=== PATIENT | female | born 1995 | race Caucasian/White ===

== ENCOUNTER → 2016-08-25 | Outpatient (CLI) | payer OTHER ==
[~2016-08-25] MED LIST: ASPI81CH PO; COLA100C3 PO; NAPR500T2 PO; OXYC1TAB23 PO; ZOFR4TAB3 PO; no medications
--- NOTE | 2016-08-25 16:16 | REP ---
CT of the right hip without IV contrast: Comparison is a plain film study performed of 4 [facility], [place] 08/25/2016. Axial images are acquired helical scanning and a reformatted sagittal coronal projections. On the sagittal projections. There appears to be in a unicortical fracture in the inferior cortex of the femoral neck. . The fracture does not appear to extend into the remainder of the femoral . This may be a stress fracture. Neoplasm is also a possibility. Consideration might be given to MRI for further evaluation. Mineralization is otherwise normal. The joint space is unremarkable. There is no femoral head deformity. Impression: Unicortical l fracture along the inferior cortex of the femoral neck, possibly a stress fracture, versus neoplasm. Consider MRI for further evaluation. Signed by Manolo Bravo MD 08/25/2016 04:08 P
== END ==
LOC: M RAD 14:56
PROVIDERS: ATTEND Orthopaedic Surgery
DX: M25.551 Pain in right hip (principal)

== ENCOUNTER 2016-08-26 10:52 | Day surgery (SDC) | payer OTHER ==
[2016-08-26] MEDS ORDERED: ceFAZolin 2 GM/D5W 50 ML IV BAG (J0690) As Ordered ONE (11:06)
[2016-08-26] MEDS ORDERED: no medications (11:36)
[2016-08-26] MEDS ORDERED: LR 1,000 ML IV SCH ×2 (12:15→22:00)
[2016-08-26 12:41] LABS: CONTROL LINE UCG INT CTR LINE PRESENT
[2016-08-26] MEDS ORDERED: ceFAZolin 1GM INJ (J0690) As Ordered ONE (16:49)
[2016-08-26] MEDS ORDERED: MIDAZOLAM INJ 2 MG/2 ML VIAL (J2250) As Ordered ONE (20:17)
[2016-08-26] MEDS ORDERED: fentaNYL 100 MCG/2 ML INJECTION (J3010) As Ordered ONE ×2 (20:17→21:37)
[2016-08-26] MEDS ORDERED: ONDANSETRON 4MG/2ML VIAL (J2405) As Ordered ONE ×2 (20:25→21:37)
[2016-08-26] MEDS ORDERED: dexameTHASONE 4 MG/ML 1ML VIAL (J1100) As Ordered ONE (20:25)
[2016-08-26] MEDS ORDERED: ePHEDrine SULFATE 25 MG/5 ML(5MG/ML) SYRINGE As Ordered ONE (20:27)
[2016-08-26] MEDS ORDERED: PHENYLephrine HCL 500 MCG/5 ML (100MCG/ML) SYRINGE (J2370) As Ordered ONE (20:27)
[2016-08-26] MEDS ORDERED: LIDOCAINE W/EPINEPHRINE 1% 20ML VIAL As Ordered ONE (20:31)
[2016-08-26] MEDS ORDERED: BUPIVACAINE/EPIN 0.5% 30 ML VIAL As Ordered ONE (20:31)
[2016-08-26] MEDS ORDERED: PROPOFOL 500 MG/50 ML VIAL As Ordered ONE (20:40)
[2016-08-26] MEDS ORDERED: KETOROLAC 60 MG/2 ML VIAL (J1885) As Ordered ONE (21:12)
[2016-08-26] MEDS ORDERED: HYDROmorphone HCL 2 MG/ML 1ML VIAL (J1170) As Ordered ONE (21:12)
[2016-08-26] MEDS ORDERED: PERCOCET 5MG/325MG TAB As Ordered ONE (21:37)
[2016-08-26] MEDS: fentaNYL 100 MCG/2 ML INJECTION (J3010) IV PRN ×4 (21:40→22:10)
[2016-08-26] MEDS ORDERED: PERCOCET 5MG/325MG TAB PO PRN (22:00)
[2016-08-26] MEDS ORDERED: ONDANSETRON 4MG/2ML VIAL (J2405) IV PRN ×2 (22:00)
[2016-08-26] MEDS ORDERED: ONDANSETRON 4 MG TAB (S0181) PO PRN (22:00)
[2016-08-26] MEDS: PERCOCET 5MG/325MG TAB PO PRN (22:06)
--- NOTE | 2016-08-26 22:08 | REP ---
Clinical: Postoperative assessment. Technique: Portable AP and cross-table lateral views. Findings: The patient is status post pinning of the femoral neck for underlying fracture. Alignment is maintained. Impression: Status post pinning for femoral neck fracture. Signed by Asim Kelly MD 08/26/2016 09:59 P
[2016-08-26 23:00] VITALS: BP 117/55
[2016-08-26 23:30] VITALS: BP 122/76
[2016-08-27 00:30] VITALS: BP 126/73
[2016-08-27 01:30] VITALS: BP 126/65
[2016-08-27] MEDS: PERCOCET 5MG/325MG TAB PO PRN ×3 (02:12→11:16)
[2016-08-27 02:30] VITALS: BP 121/57
--- NOTE | 2016-08-27 07:39 | REP ---
Clinical: Open reduction and fixation. Technique: Intraoperative fluoroscopic imaging. Findings: Multiple intraoperative fluoroscopic images demonstrate the patient to be status post right femoral neck pinning with three orthopedic screws in satisfactory position and normal alignment through the proximal femur. Total fluoroscopic time 2 minutes 7 seconds. Impression: Status post right femoral neck pinning Signed by Asim Kelly MD 08/27/2016 07:31 A
[2016-08-27 08:00] VITALS: BP 128/71
[2016-08-27] MEDS ORDERED: NAPR500T3 PO (08:53)
[2016-08-27] MEDS ORDERED: ASPI81CH PO (08:53)
[2016-08-27] MEDS ORDERED: OXYC1TAB23 PO (08:53)
[2016-08-27] MEDS ORDERED: ZOFR4TAB3 PO (08:53)
[2016-08-27] MEDS ORDERED: COLA100C5 PO (08:53)
[2016-08-27] MEDS ORDERED: NAPROXEN 250 MG TAB PO SCH (09:00)
--- NOTE | 2016-08-27 11:32 | RO ---
DATE OF PROCEDURE: 08/26/2016 PREPROCEDURE DIAGNOSIS: Right femoral neck stress fracture. POSTPROCEDURE DIAGNOSIS: Right femoral neck stress fracture. PROCEDURE PERFORMED: Right hip percutaneous screw fixation. SURGEON: Edwar Ortega MD PROCESS SAFETY ENGINEERING TECHNOLOGIST: none ANESTHESIA: LMA and local. ANTIBIOTIC: 2 grams of Ancef given within 1 hour of incision. IMPLANTS USED: Synthes 6.5 mm short threaded cannulated screws with washers, one 85 mm in length and two 80 mm in length. COMPLICATIONS: None. ESTIMATED BLOOD LOSS: 50 mL. DEEP VEIN THROMBOSIS (DVT) PROPHYLAXIS: Sequential compression device (SCD) on the lower extremities. MATERIAL SENT TO LAB: None. COMPLICATIONS: None. 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 She had radiographs that demonstrated evidence of a complete nondisplaced femoral neck stress fracture with remodeling changes on the inferior aspect of the femoral neck. I obtained a CT to ensure that there was no displacement and confirmed that there was involvement of the tension side of the femoral neck, which there appeared to be. I discussed with the patient, the risks, benefits, indications and alternatives of operative versus nonoperative management of her femoral neck stress fracture, given that she had what appeared to be tension side involvement. I recommended percutaneous screw fixation. The patient expressed understanding and provided informed consent for right hip percutaneous screw fixation. INTRAOPERATIVE FINDINGS: Screws were placed in adequate position. The hip was brought through a range of motion, confirmed that there was no intraarticular penetration of screws. DESCRIPTION OF PROCEDURE: The patient was positively identified in the preoperative holding area where the surgical site was marked. She was brought to the operating room where she was placed under LMA anesthesia. She was positioned supine on the fracture table with the down leg secured to the table. All bony prominences were appropriately padded. I obtained fluoroscopic images prior to prepping and draping to ensure adequate C-Arm fluoroscopy. The patient was then prepped and draped in the usual sterile fashion. A final time out was performed. I made a 2 cm laterally based incision on the thigh approximately 10cm distal to the tip of the greater trochanter. I dissected through skin and subcutaneous tissue. I then introduced the first 2.8 mm threaded guide pin for the first screw in the posteroinferior position. I then used C-Arm fluoroscopic guidance and placed the posteroinferior pin. Then, again using fluoroscopic guidance, placed the posterosuperior pin and anterosuperior pin in a slightly divergent fashion. This was followed by measurement of each screw. I then used the 5 mm cannulated drill bit to drill the outer cortex, followed by sequential placement of all three screws, starting with the 85 mm screw with washer posterior-inferiorly, followed by the two superior screws. After all three screws were placed, they were sequentially tightened. I then took the hip through range of motion and took sequential C- Arm shots in 10 degree increments to confirm that there was no intraarticular penetration of the screw and no penetration through the femoral neck. After this was confirmed, final fluoroscopic images were obtained. The wound was thoroughly irrigated with normal saline and closed in layers with #2-0 Vicryl for the subcutaneous layer and running #3-0 Monocryl for the skin. a 10cc mixture of 1% lidocaine with epinephrine and 0.5% Marcaine with epinephrine was injected into the wound for local pain control. Steri-Strips and sterile dressings were applied, ending the procedure. I was present and scrubbed in for all portions of the case. Postoperative plan: The patient will remain in the hospital overnight for observation and pain control. She will be non weight bearing on crutches. We will discharge home tomorrow morning after crutch training is complete. She will followup in the clinic in 10 to 14 days for a wound check. She will be non- weight bearing for at least 6 weeks post operatively. GENARO
== END 2016-08-27 12:20 | disposition home or self-care (01) ==
LOC: M SDC 10:52 → EDSTATUS 14:42 → M MS5PR 23:00 → M SDC 08-27 12:20
PROVIDERS: ATTEND Orthopaedic Surgery
DX: M84.351A Stress fracture, right femur, initial encounter for fracture (principal)
CPT/HCPCS: 27235; 73501; 73502; 84703; 96374; 96375; 97116; C1776; J0690; J1100; J1170; J1885; J2250; J2370; J2405; J3010

== ENCOUNTER 2016-11-28 13:25 | Emergency (ER) | payer OTHER ==
[~2016-11-28] VITALS: Ht 165.1 cm; Wt 81.8 kg
[~2016-11-28 13:25] MED LIST changes: -COLA100C3 PO; +COLA100C5 PO; -NAPR500T2 PO; +NAPR500T3 PO
[2016-11-28] MEDS ORDERED: IBUP200T45 (13:46)
[2016-11-28] MEDS ORDERED: CYCL10TA (13:46)
[2016-11-28 14:36] LABS: BASO % 0.2 % (0.0-1.0); EOS # 0.1 10^3/uL (0.0-0.50); EOS % 1.5 % (0.0-3.0); IMMATURE GRANULOCYTE % 0.2 % (0-0); LYMPH % 20.9 % (24.0-44.0); MEAN CORPUSCULAR HEMOGLOBIN 26.5 pg (27.0-33.0); MEAN CORPUSCULAR HGB CONC 31.4 g/dl (32.0-36.5); MEAN CORPUSCULAR VOLUME 84.4 fl (80.0-96.0); MONO # 0.2 10^3/uL (0.0-0.8); MONO % 4.9 % (0.0-5.0); NEUTROPHILS # 3.4 10^3/uL (1.8-7.7); NEUTROPHILS % 72.3 % (36.0-66.0); PLATELET COUNT, AUTOMATED 382 10^3/uL (150-450); WHITE BLOOD COUNT 4.7 10^3/uL (4.0-10.0)
[2016-11-28 14:39] LABS: ADD MORPHOLOGY? NO
[2016-11-28 15:04] LABS: ALBUMIN 3.7 GM/DL (3.2-5.2); ALBUMIN/GLOBULIN RATIO 0.82 (1.00-1.93); ALKALINE PHOSPHATASE 86 U/L (45-117); ALT/SGPT 22 U/L (12-78); ANION GAP 7 MEQ/L (8-16); AST/SGOT 12 U/L (15-37); BILIRUBIN,TOTAL 0.2 MG/DL (0.2-1.0); BLOOD UREA NITROGEN 10 MG/DL (7-18); CALCIUM LEVEL 9.2 MG/DL (8.5-10.1); CARBON DIOXIDE LEVEL 27 MEQ/L (21-32); CHLORIDE LEVEL 103 MEQ/L (98-107); CREATININE FOR GFR 0.99 MG/DL (0.55-1.02); GLOMERULAR FILTRATION RATE > 60.0 (>60); GLUCOSE, FASTING 129 MG/DL (70-105); POTASSIUM SERUM 3.6 MEQ/L (3.5-5.1); SODIUM LEVEL 137 MEQ/L (136-145); TOTAL PROTEIN 8.2 GM/DL (6.4-8.2); URIC ACID 4.3 MG/DL (2.6-6.0)
[2016-11-28 15:12] LABS: ERYTHROCYTE SEDIMENTATION RATE 63 mm/hr (0-20)
[2016-11-28 15:32] VITALS: BP 128/78
[2016-12-02 00:06] LABS: Lyme Disease IgG/IgM Antibodie <0.91 ISR (0.00-0.90); Lyme Disease IgM Ab Quantitati <0.80 index (0.00-0.79)
== END 2016-11-28 15:33 | disposition home or self-care (01) ==
LOC: M ED 13:25
DX: M25.50 Pain in unspecified joint (principal)

== ENCOUNTER 2017-06-04 20:08 | Emergency (ER) | payer OTHER ==
[2017-06-04] MEDS: NORCO 5/325MG TABLET (BULK FOR ED) PO (22:28)
== END 2017-06-04 22:33 | disposition home or self-care (01) ==
LOC: M ED 20:08
DX: K04.7 Periapical abscess without sinus (principal); K02.9 Dental caries, unspecified; F17.210 Nicotine dependence, cigarettes, uncomplicated
CPT/HCPCS: 99283